=== PATIENT | female | born 1980 | race African-American/Black ===

== ENCOUNTER 2023-05-25 05:23 | Emergency (ER) | payer SELFPAY ==
[~2023-05-25] VITALS: Ht 172.7 cm; Wt 62.3 kg
[2023-05-25 05:38] VITALS: BP 127/87; PULSE 94; RESP 18; O2SAT 100
== END 2023-05-25 07:04 | disposition left against medical advice (07) ==
LOC: ER 05:23
DX: K59.00 Constipation, unspecified (principal); Z53.21 Procedure and treatment not carried out due to patient leaving prior to being seen by health care provider